=== PATIENT | female | born 1940 | race Caucasian/White ===

== ENCOUNTER 2020-11-28 15:46 | Emergency (ER) | payer MEDICARE ==
[~2020-11-28] VITALS: Ht 165.1 cm; Wt 45.5 kg
[2020-11-28] MEDS ORDERED: ketorolac tromethamine 15mg/ml inj. IM ONE (16:55)
[2020-11-28] MEDS ORDERED: ACET-1025 PO (16:57)
[2020-11-28 17:25] VITALS: BP 167/60
== END 2020-11-28 18:36 | disposition home or self-care (01) ==
LOC: ER 15:47
DX: M54.5 Low back pain (principal); Z60.2 Problems related to living alone; Z79.899 Other long term (current) drug therapy
CPT/HCPCS: 96372; 99284; J1885